=== PATIENT | female | born 1945 | race Caucasian/White ===

== ENCOUNTER 2023-05-18 11:06 | Observation (INO) | payer MEDICARE ==
[2023-05-17 17:10] LABS: BASOPHILS % (AUTO) 0.4 % (0-1); EOSINOPHILS # (AUTO) 0.4 X10'3 (0-0.9); LYMPHOCYTES # (AUTO) 1.2 X10'3 (1.1-4.8); LYMPHOCYTES % (AUTO) 13.3 % (21-51); MEAN CORPUSCULAR HEMOGLOBIN 28.7 PG (27.0-31.0); MEAN CORPUSCULAR HGB CONC 32.9 g/dL (33.0-36.5); MEAN PLATELET VOLUME 6.3 FL (7.4-10.4); MONOCYTES % (AUTO) 10.9 % (2-12); NEUTROPHILS # (AUTO) 6.3 X10'3 (1.8-7.7); NEUTROPHILS % (AUTO) 70.4 % (42-75); PRE OP HEMATOCRIT 37.5 % (35.0-45.0); PRE OP HEMOGLOBIN 12.4 g/dL (12.0-16.0); PRE OP PLATELET COUNT 336 X10'3 (140-440); PRE OP WHITE BLOOD COUNT 8.9 10'3 (4.8-10.8); RED BLOOD COUNT 4.31 X10'6 (4.20-5.60); RED CELL DISTRIBUTION WIDTH 13.4 % (11.5-14.5)
[2023-05-17 17:20] LABS: BILIRUBIN,URINE NEGATIVE (Neg); CLARITY,URINE CLOUDY (Clear); COLOR,URINE YELLOW (Yellow); GLUCOSE, URINE NEGATIVE (Neg); KETONES,URINE TRACE mg/dl (Neg); LEUKOCYTE ESTERASE ,URINE SMALL (Neg); NITRITES, URINE NEGATIVE (Neg); OCCULT BLOOD,URINE NEGATIVE (Neg); PROTEIN,URINE NEGATIVE (Neg); UROBILINOGEN,URINE 0.2 E.U/dL (0.2-1.0)
[2023-05-17 17:32] LABS: UA COLLECTION TYPE CLN CATCH MIDSTREAM
[2023-05-17 17:33] LABS: MUCUS STRANDS FEW /LPF (Neg); SQUAMOUS EPITHELIAL CELL,UR FEW /LPF (FEW)
[2023-05-17 17:34] LABS: BACTERIA,URINE 1+ /HPF (Neg); RBC,URINE 0-2 /HPF (0-2); WBC,URINE 20-30 /HPF (0-4)
[2023-05-17 17:35] LABS: ALBUMIN 3.4 G/DL (3.4-5.0); ALBUMIN/GLOBULIN RATIO 0.9 (1.1-1.5); ALKALINE PHOSPHATASE 67 IU/L (46-116); AMORPHOUS PHOSPHATES 1+; BLOOD UREA NITROGEN 15 MG/DL (7-18); BUN/CREATININE RATIO 20.8 (10.0-20.0); CALCIUM 9.2 MG/DL (8.5-10.1); CHLORIDE 102 MMOL/L (99-107); CREATININE 0.72 MG/DL (0.40-0.90); PRE OP ALT 12 U/L (30-65); PRE OP ANION GAP 10 (8-16); PRE OP AST 15 U/L (10-37); PRE OP BILIRUB, TOTAL 0.3 MG/DL (0.0-1.0); PRE OP GLUCOSE 97 MG/DL (70-104); PRE OP POTASSIUM 3.5 MMOL/L (3.4-5.1); PRE OP SODIUM 139 MMOL/L (135-145); TOTAL CARBON DIOXIDE 27.4 MMOL/L (24-32); TOTAL PROTEIN 7.2 G/DL (6.4-8.2); eGFR 78 ML/MIN
[2023-05-18] VITALS (27 sets, daily range): BP systolic 80–136; BP diastolic 50–91; PULSE 60–97; RESP 14–25; TEMP 97.2–98.7; O2SAT 92–98
[~2023-05-18] VITALS: Ht 144.8 cm; Wt 46.9 kg
[~2023-05-18 11:06] MED LIST: CRANBERRY; FOLIC ACID; GROW BONE PO; NIACIN; POTASSIUM; VITAMIN B-12; VITAMIN C; VITAMIN E; famotidine 20mg tablet PO ONE
[2023-05-18] MEDS ORDERED: cefazolin 2gm/D5W 100mL 100 ML IV ONE (11:45)
[2023-05-18] MEDS: ringers solution, lacted 1,000 ML IV SCH ×6 (12:10→19:22)
[2023-05-18] MEDS ORDERED: BUPIVAcaine/PF 2.5 mg/ml (0.25%) 30ml vial ONE (13:35)
[2023-05-18] MEDS ORDERED: desflurane 240ml liquid inh. IH ONE (13:44)
[2023-05-18] MEDS ORDERED: fentaNYL/PF 50MCG/1 ML 2ML syringe ONE (13:44)
[2023-05-18] MEDS ORDERED: midazolam 1 mg/ML 2ml injection ONE (13:45)
[2023-05-18] MEDS ORDERED: glycopyrrolate 0.2mg/ml inj ONE (13:46)
[2023-05-18] MEDS ORDERED: neostigmine methylsulfate 1 MG/ML 10ml vial ONE (13:46)
[2023-05-18] MEDS ORDERED: propofol inj 20 ML IV ONE (13:46)
[2023-05-18] MEDS ORDERED: dexamethasone sod phosphate 4mg/ml inj. ONE (13:46)
[2023-05-18] MEDS ORDERED: LIDOcaine 2% (20mg/ml) 5ml vial ONE (13:46)
[2023-05-18] MEDS ORDERED: ondansetron/PF 4mg/2ml inj ONE (13:47)
[2023-05-18] MEDS ORDERED: rocuronium 10mg/ml inj IV ONE (13:47)
[2023-05-18] MEDS ORDERED: ringers solution, lacted 1,000 ML IV SCH (14:10)
[2023-05-18] MEDS ORDERED: morphine 2 MG/ML inj. syringe IV PRN (14:10)
[2023-05-18] MEDS ORDERED: hydrALAZINE 20mg/ml inj. IV PRN (14:10)
[2023-05-18] MEDS ORDERED: morphine 4 MG/ML inj SYRINge IV PRN (14:10)
[2023-05-18] MEDS ORDERED: labetalol 20mg/4ml (5mg/ml) syringe IV PRN (14:10)
[2023-05-18] MEDS ORDERED: fentaNYL/PF 50MCG/1 ML 2ML syringe IV PRN ×2 (14:10)
[2023-05-18] MEDS ORDERED: ondansetron/PF 4mg/2ml inj IV PRN (14:10)
[2023-05-18] MEDS ORDERED: hydrALAZINE 20mg/ml inj. IV ONE (14:25)
--- NOTE | 2023-05-18 14:57 | NUR ---
Received from OR via [facility] , accompanied by Anesthesiologist RHONDA and report given by Anesthesiolgist. PATIENT WITH 20G PIV IN LEFT UE RUNNING LR AT 100. LEFT INGUINAL SITE X2 PRESENT AND ARE CDI. NO DRAINAGE PRESNET. VSS. WILL TREAT FOR PAIN NEEDED. Addendum: 05/18/23 at 1509 by Stalin Batres RN RN Amended: Links added.
[2023-05-18] MEDS ORDERED: HYDROcodone/acetaminophen 10/325mg tab PO ONE (15:30)
[2023-05-18] MEDS ORDERED: naloxone 0.4 mg/ml inj IV PRN (16:25)
[2023-05-18] MEDS ORDERED: PCA WASTE DOCUMENTATION 1 MG ML MC SCH (16:25)
--- NOTE | 2023-05-18 16:43 | NUR ---
DAUGHTER IS AT BEDSIDE. NEW PIV PLACED BY CYNDEE SYED ON FIRST ATTEMPT. PATIENT STATES THAT SHE NEEDS TO STAY THE NIGHT FOR HER PAIN. MD BAR AGREES AND ADMIT ORDERS RECEIVED. WILL TRANSPORT UPON ARRIVAL AND SET UP OF [employer] AND AVAILABILITY OF A MED SURG BED. Addendum: 05/18/23 at 1646 by Stalin Sena - CYNDEE COTTER Amended: Links added.
--- NOTE | 2023-05-18 17:17 | NUR ---
REPORT GIVEN AND ALL QUESTIONS ANSWERED. PATIENT TRANSFERRED TO SURG/ORTHO .LABELED BELONGINGS PRESENT AND DELIVERED TO ROOM. RN PRESENT ALL CRITERIA FOR TRANSFER TO THE FLOOR HAS BEEN ACHIEVED. VSS. PAIN AT A TOLERABLE LEVEL. BED LOW, CALL LIGHT PRESENT AND 2 RAILS DOWN. CYNDEE HILL AWARE THAT PATIENT HAS ARRIVED AND IS PRESENT TO ACCEPT PATIENT. . Addendum: 05/18/23 at 1805 by Stalin Batres RN, RN Amended: Links added.
--- NOTE | 2023-05-18 18:00 | NUR ---
Patient in room ORTHO 4016. I have received report from Melanie COTTER and had the opportunity to ask questions and assume patient care.
[2023-05-18] MEDS: HYDROmorph/NS 0.2 mg/ml PCA 100 ML IV SCH ×4 (18:28→23:00)
--- NOTE | 2023-05-18 18:32 | NUR ---
patient orienatated to room dilaudid cadd set up checked with Michelle COTTER. Report given to Michelle COTTER
--- NOTE | 2023-05-18 18:32 | NUR ---
Patient in room ORTHO 4016. I have received report from ashley COTTER and had the opportunity to ask questions and assume patient care.
[2023-05-19 00:28] VITALS: BP 97/53; PULSE 73; RESP 17; TEMP 98; O2SAT 94
[2023-05-19] MEDS: HYDROmorph/NS 0.2 mg/ml PCA 100 ML IV SCH ×7 (01:00→13:00)
[2023-05-19 01:54] VITALS: BP 97/53; PULSE 73; RESP 17; TEMP 98; O2SAT 94
[2023-05-19] MEDS: ringers solution, lacted 1,000 ML IV SCH ×2 (02:25→03:24)
--- NOTE | 2023-05-19 02:41 | NUR ---
Upon rounding on pt this evening I have offered her the cuff runner button several times. She states" I don't have any pain" You can take it away.
[2023-05-19 06:00] VITALS: BP 120/65; PULSE 62; RESP 14; TEMP 97.9; O2SAT 96
--- NOTE | 2023-05-19 06:13 | NUR ---
Problems reprioritized. Patient report given, questions answered & plan of care reviewed with Farnaz COTTER.
[2023-05-19 10:00] VITALS: BP 90/53; PULSE 66; RESP 18; TEMP 97.8; O2SAT 94
[2023-05-19 10:10] VITALS: BP 127/80; PULSE 78
[2023-05-19] MEDS ORDERED: ASCO500T28 PO (11:56)
[2023-05-19] MEDS ORDERED: CYAN500T9 PO (11:56)
[2023-05-19] MEDS ORDERED: FOLI0.4T14 PO (11:56)
[2023-05-19] MEDS ORDERED: NIAC1CAP PO (11:56)
[2023-05-19] MEDS ORDERED: CRAN450T9 PO (11:56)
[2023-05-19] MEDS ORDERED: VITA400T10 PO (11:56)
[2023-05-19] MEDS ORDERED: POTA99TA26 PO (11:56)
[2023-05-19 13:48] VITALS: RESP 14; O2SAT 97
--- NOTE | 2023-05-19 16:00 | NUR ---
DISCHARGE NOTE- Reviewed discharge paperwork with pt. Pt. denies any pain and has no new prescriptions. Tolerating home medication well. Discussed s/sx infection and when to call the doctor. Discussed diet, exercise, weight restrictions, and showering with pt. Pt. agrees to f/u with Dr. Bolden in one week and will call his office Monday to schedule an appointment. Contact information provided. Pt. PIV DC'd, cannula intact, no s/sx bleeding noted. Incisions look healthy, approximated, and asymptomatic. Pt. is ambulating w/o DME with her daughter well. Pt. states her grandson will be staying with her at home.
[2023-05-19] MEDS ORDERED: vitamin E 400 unit capsule PO SCH (21:00)
[2023-05-20] MEDS ORDERED: [UNRECOGNIZED DRUG - OTHER] PO SCH (08:00)
[2023-05-20] MEDS ORDERED: ascorbic acid 500mg tablet PO SCH (08:00)
[2023-05-20] MEDS ORDERED: CRANBERRY FRUIT PO SCH (08:00)
[2023-05-20] MEDS ORDERED: cyanocobalamin 500mcg tablet PO SCH (08:00)
[2023-05-20] MEDS ORDERED: folic acid 0.4mg tablet PO SCH (08:00)
== END 2023-05-19 16:30 | disposition home or self-care (01) ==
LOC: PAS 11:06 → ORTHO 4S 16:22
PROVIDERS: ADMIT Surgery; ATTEND Surgery
DX: L02.214 Cutaneous abscess of groin (principal); K40.90 Unilateral inguinal hernia, without obstruction or gangrene, not specified as recurrent; K85.90 Acute pancreatitis without necrosis or infection, unspecified; Z96.659 Presence of unspecified artificial knee joint; Z79.899 Other long term (current) drug therapy
CPT/HCPCS: 10061; 36415; 80053; 81001; 82948; 85025; 87070; 87075; 87076; 87077; 87088; 87185; 87186; 93005; 96365; 96366; 96375; G0378; J0360; J0690; J1100; J1170; J2250; J2405; J2704; J2710; J3010; J3490; J7120; A4215; A4618

== ENCOUNTER 2024-04-15 09:07 | Day surgery (SDC) | payer MEDICARE ==
[~2024-04-15] VITALS: Ht 144.8 cm; Wt 48.4 kg
[~2024-04-15 09:07] MED LIST changes: +ASCO500T28 PO; +CRAN450T9 PO; -CRANBERRY; +CYAN500T9 PO; +FOLI0.4T14 PO; -FOLIC ACID; +NIAC1CAP PO; -NIACIN; +POTA99TA26 PO; -POTASSIUM; +VITA400T10 PO; -VITAMIN B-12; -VITAMIN C; -VITAMIN E; -famotidine 20mg tablet PO ONE
[2024-04-15 09:30] VITALS: BP 126/73; PULSE 78; RESP 16; TEMP 97.9; O2SAT 97
[2024-04-15] MEDS ORDERED: NO HOME MEDS (09:38)
[2024-04-15 09:57] LABS: BASOPHILS % (AUTO) 0.4 % (0-1); EOSINOPHILS # (AUTO) 0.3 X10'3 (0-0.9); HEMATOCRIT 40.2 % (35.0-45.0); HEMOGLOBIN 13.2 g/dl (12.0-16.0); LYMPHOCYTES # (AUTO) 0.9 X10'3 (1.1-4.8); LYMPHOCYTES % (AUTO) 9.4 % (21-51); MEAN CORPUSCULAR HEMOGLOBIN 28.8 PG (27.0-31.0); MEAN CORPUSCULAR HGB CONC 32.8 g/dL (33.0-36.5); MEAN CORPUSCULAR VOLUME 87.8 FL (78-98); MEAN PLATELET VOLUME 6.6 FL (7.4-10.4); MONOCYTES # (AUTO) 1.2 X10'3 (0-0.9); NEUTROPHILS # (AUTO) 7.3 X10'3 (1.8-7.7); NEUTROPHILS % (AUTO) 75.2 % (42-75); PLATELET COUNT 252 X10'3 (140-440); RED BLOOD COUNT 4.58 X10'6 (4.20-5.60); RED CELL DISTRIBUTION WIDTH 15.8 % (11.5-14.5); WHITE BLOOD COUNT 9.8 X10'3 (4.5-11.0)
[2024-04-15 10:07] LABS: ALBUMIN 3.5 G/DL (3.4-5.0); ANION GAP 9 (8-16); BLOOD UREA NITROGEN 14 MG/DL (7-18); BUN/CREATININE RATIO 15.6 (10.0-20.0); CHLORIDE 101 MMOL/L (99-107); GLUCOSE 91 MG/DL (70-104); POTASSIUM 3.9 MMOL/L (3.5-5.1); SODIUM 136 MMOL/L (135-145); TOTAL CARBON DIOXIDE 26.1 MMOL/L (24-32); eCRCL 31 ML/MIN; eGFR 60 ML/MIN
[2024-04-15 10:09] LABS: PROTHROMBIN TIME 10.6 SECONDS (9.0-12.0)
[2024-04-15] MEDS: normal saline 1000ml 1,000 ML IV SCH (10:34)
[2024-04-15] MEDS: vancomycin/NS 1 GM ADD-VANTAGE 250 ML X 1 DOSE IV ONE (10:34)
[2024-04-15] MEDS ORDERED: vancomycin 1,000mg inj ONE (11:05)
[2024-04-15] MEDS ORDERED: fentaNYL/PF 50MCG/1 ML 2ML syringe ONE (11:05)
[2024-04-15] MEDS ORDERED: LIDOcaine 1% W/epiNEPHrine 1:100,000 20ml vial ONE (11:05)
[2024-04-15] MEDS ORDERED: midazolam 1 mg/ML 2ml injection ONE (11:05)
[2024-04-15] MEDS ORDERED: ceFAZolin 1000mg inj ONE (11:38)
[2024-04-15 12:31] VITALS: BP 111/65; PULSE 72; RESP 16; O2SAT 95
[2024-04-15 12:45] VITALS: BP 99/66; PULSE 72; RESP 16; O2SAT 95
[2024-04-15] MEDS ORDERED: HYDROcodone/acetaminophen 5mg/325mg tablet PO PRN (12:45)
[2024-04-15] MEDS ORDERED: HYDROcodone/acetaminophen 10/325mg tab PO PRN (12:45)
[2024-04-15 13:00] VITALS: BP 112/48; PULSE 68; RESP 16; O2SAT 95
[2024-04-15 13:15] VITALS: BP 97/58; PULSE 70; RESP 16; O2SAT 95
[2024-04-15 13:30] VITALS: BP 97/55; PULSE 69; RESP 16; O2SAT 97
== END 2024-04-15 14:00 | disposition home or self-care (01) ==
LOC: SSTAY O 09:07
PROVIDERS: ATTEND Internal Medicine Cardiovascular Disease
DX: Z45.010 Encounter for checking and testing of cardiac pacemaker pulse generator [battery] (principal); R94.31 Abnormal electrocardiogram [ECG] [EKG]
CPT/HCPCS: 33228; 36415; 80048; 83735; 85025; 85610; 93005; 99152; 99153; C1785; J0690; J2250; J3010; J3370; J3490; J7030